=== PATIENT | female | born 1985 | race Asian ===

== ENCOUNTER → 2024-03-22 12:54 | Outpatient (REF) | payer OTHER, SELFPAY | LOC: PNTC 12:54 | PROVIDERS: ATTENDING PHYSICIAN Advanced Practice Midwife | DX: O09.529 Supervision of elderly multigravida, unspecified trimester (principal); O43.219 Placenta accreta, unspecified trimester | CPT/HCPCS: 76811; 93976 ==

== ENCOUNTER 2024-07-23 01:37 | Inpatient (IN) | payer OTHER, SELFPAY ==
[2024-07-23 02:25] VITALS: BP 110/71; BMI 30.6
[2024-07-23] MEDS: LR 1000 IV ×2 (02:45→06:48)
[2024-07-23 03:03] LABS: % Basophils 0.3 % (0-2); % Eosinophils 1.1 % (0-6); % Immature Granulocytes 0.2 % (0-0.5); % Lymphocytes 24.7 % (20.5-51.1); % Monocytes 6.8 % (1.7-9.3); % Neutrophils 66.9 % (42.2-75.2); Absolute Eosinophils 0.1 10^3/uL (0-0.7); Absolute Lymphocytes 2.4 10^3/uL (1.2-3.4); Absolute Monocytes 0.7 10^3/uL (0.1-0.6); Absolute Neutrophils 6.5 10^3/uL (1.4-6.5); Hematocrit 32.6 % (37.0-47.0); Mean Corp Hgb Conc. 33.7 g/dL (33.0-37.0); Mean Corpuscular Hgb 26.9 pg (27.0-31.0); Mean Corpuscular Volume 79.7 fL (81.0-99.0); Mean Platelet Volume 10.3 fL (7.4-10.4); Nucleated Red Blood Cells % 0 %; Platelet Count 242 10^3/uL (130-400); Red Blood Cell Count 4.09 10^6/uL (4.20-5.40); Red Cell Dist. Width 16.9 % (11.5-14.5); White Blood Cell Count 9.7 10^3/uL (4.8-10.8)
[2024-07-23] MEDS: PITOCIN 30 UNITS/NSS 500 ML IV (07:13)
[2024-07-23] MEDS: TYLENOL 500 MG PO ×3 (13:07→21:26)
[2024-07-23] MEDS: PEPCID PO (13:07)
[2024-07-23] MEDS: HYDROCORTISONE 2.5% CREAM 1 APPLIC TOPICAL (20:30)
[2024-07-24] MEDS: TYLENOL 500 MG PO ×3 (01:52→23:16)
[2024-07-24] MEDS: SENOKOT-S 1 TABLET PO (08:10)
[2024-07-24] MEDS: HYDROCORTISONE 2.5% CREAM 1 APPLIC TOPICAL (08:14)
[2024-07-24] MEDS: PEPCID 40 MG PO (09:38)
[2024-07-25] MEDS: PEPCID 40 MG PO (09:22)
[2024-07-25] MEDS: SENOKOT-S 1 TABLET PO (09:22)
[2024-07-25] MEDS: TYLENOL 500 MG PO (09:22)
[2024-07-26 14:57] LABS: Syphilis/T. pallidum Ab Reflex Negative (Negative)
== END 2024-07-25 13:22 | disposition home or self-care (01) | DRG 807 ==
LOC: LDRP 01:37
PROVIDERS: Advanced Practice Midwife; ADMITTING PHYSICIAN Obstetrics & Gynecology
PROC: 0HQ9XZZ Repair Perineum Skin, External Approach (ICD-10-PCS; 2024-07-23)
PROC: 10907ZC Drainage of Amniotic Fluid, Therapeutic from Products of Conception, Via Natural or Artificial Opening (ICD-10-PCS; 2024-07-23)
PROC: 10E0XZZ Delivery of Products of Conception, External Approach (ICD-10-PCS; 2024-07-23)
DX: O34.219 Maternal care for unspecified type scar from previous cesarean delivery (principal); O70.0 First degree perineal laceration during delivery; Z37.0 Single live birth; Z3A.39 39 weeks gestation of pregnancy
CPT/HCPCS: 85025; 86780; 86850; 86900; 86901; 87491; 87591